=== PATIENT | female | born 1960 | race Hispanic/Latino ===

== ENCOUNTER 2017-03-01 15:10 | Emergency (ER) | payer OTHER ==
[2017-03-01 15:10] VITALS: BMI 25.2
[2017-03-01 15:30] VITALS: BP 114/81; PULSE 79; RESP 19; TEMP 98.1; O2SAT 100
--- NOTE | 2017-03-01 15:53 | ED PDOC ---
Arrival/HPI - General Chief Complaint: Back Pain Time Seen by Provider: 03/01/17 15:36 Historian: Patient - History of Present Illness Narrative History of Present Illness (Text): 03/01/17 15:50 56yo female present with complaint of right sided back pain since yesterday. states pain started suddenly while sitting at home. Pain became worse today, when she bent down to vegetable picker something from the floor. She describes pain as camping pain. Denies urinary symptoms, hematuria, nausea, vomiting, abdominal pain, urinary/fecal incontinence, focal weakness. Past Medical History - Provider Review Nursing Documentation Reviewed: Yes - Infectious Disease Hx of Infectious Diseases: None - Tetanus Immunization Tetanus Immunization: Unknown - Past Medical History Past Medical History: No Previous - Cardiac Hx Cardiac Disorders: No Hx Pacemaker: No - Pulmonary Hx Respiratory Disorders: No - Neurological Hx Neurological Disorder: No - HEENT Hx HEENT Disorder: No - Renal Hx Renal Disorder: No - Endocrine/Metabolic Hx Endocrine Disorders: No - Hematological/Oncological Hx Blood Disorders: No Hx Blood Transfusions: No Hx Blood Transfusion Reaction: No - Integumentary Hx Dermatological Disorder: No - Musculoskeletal/Rheumatological Hx Musculoskeletal Disorders: Yes Hx Arthritis: Yes Other/Comment: b/l hip replacement - Gastrointestinal Hx Gastrointestinal Disorders: No - Genitourinary/Gynecological Hx Genitourinary Disorders: No - Psychiatric Hx Psychophysiologic Disorder: Yes Hx Depression: Yes Hx Emotional Abuse: No Hx Physical Abuse: No Hx Substance Use: No - Surgical History Hx Joint Replacement: Yes (bilateral hip 2005, 2009) Hx Tubal Ligation: Yes - Anesthesia Hx Anesthesia: Yes Hx Anesthesia Reactions: No Hx Malignant Hyperthermia: No - Suicidal Assessment Feels Threatened In Home Enviroment: No Family/Social History - Physician Review Nursing Documentation Reviewed: Yes Family/Social History: Unknown Family HX Smoking Status: Former Smoker Hx Alcohol Use: Yes Frequency of alcohol use: Socially Hx Substance Use: No Hx Substance Use Treatment: No Allergies/Home Meds Allergies/Adverse Reactions: Allergies No Known Allergies Allergy (Verified 03/01/17 15:28) Home Medications: Home Meds Medication Instructions Recorded Confirmed Zolpidem Tartrate [Ambien] 10 mg PO PRN PRN 10/03/15 03/01/17 Review of Systems - Physician Review All systems were reviewed & negative as marked: Yes - Review of Systems Constitutional: Normal Eyes: Normal ENT: Normal Respiratory: Normal Cardiovascular: Normal Gastrointestinal: Normal Genitourinary Female: Normal Musculoskeletal: Back Pain Skin: Normal Neurological: Normal Endocrine: Normal Hemo/Lymphatic: Normal Psychiatric: Normal Physical Exam Vital Signs Reviewed: Yes Vital Signs Temp Pulse Resp BP Pulse Ox 03/01/17 15:29 98.1 F 79 19 114/81 100 Temperature: Afebrile Blood Pressure: Normal Pulse: Regular Respiratory Rate: Normal Appearance: Positive for: Well-Appearing, Non-Toxic, Comfortable Pain Distress: None Mental Status: Positive for: Alert and Oriented X 3 - Systems Exam Head: Present: Atraumatic, Normocephalic Pupils: Present: PERRL Extroacular Muscles: Present: EOMI Conjunctiva: Present: Normal Mouth: Present: Moist Mucous Membranes Neck: Present: Normal Range of Motion Respiratory/Chest: Present: Clear to Auscultation, Good Air Exchange. No: Respiratory Distress, Accessory Muscle Use Cardiovascular: Present: Regular Rate and Rhythm, Normal S1, S2. No: Murmurs Abdomen: Present: Normal Bowel Sounds. No: Tenderness, Distention, Peritoneal Signs Back: Present: Paraspinal Tenderness (Right sided paraspinous tenderness). No: Midline Tenderness Upper Extremity: Present: Normal Inspection. No: Cyanosis, Edema Lower Extremity: Present: Normal Inspection. No: Edema Neurological: Present: GCS=15, CN II-XII Intact, Speech Normal Skin: Present: Warm, Dry, Normal Color. No: Rashes Psychiatric: Present: Alert, Oriented x 3, Normal Insight, Normal Concentration Medical Decision Making ED Course and Treatment: 03/01/17 20:27 LS xray - No acute finding On re evaluation pt stated her pain improved. she was ambulatory with steady gait. She had no focal neurological deficit. Was treated with NSAID and muscle relaxer for MS pain. Referred to her PMD. TRT ED for any new or worsening symptoms. - Lab Interpretations Lab Results: Lab Results 03/01/17 15:54: Urine Color Yellow, Urine Appearance Clear, Urine pH 6.0, Ur Specific Ripton 1.025, Urine Protein Negative, Urine Glucose (UA) Negative, Urine Ketones Negative, Urine Blood Trace-intact H, Urine Nitrate Negative, Urine Bilirubin Negative, Urine Urobilinogen 0.2, Ur Leukocyte Esterase Negative , Urine RBC 2 - 5, Urine WBC 0 - 2, Ur Epithelial Cells 4 - 5, Urine Bacteria Small - RAD Interpretation Radiology Orders: 03/01/17 15:36 LS SPINE WITH OBL > 18 YRS OLD [RAD] Stat - Medication Orders Current Medication Orders: Discontinued Medications Cyclobenzaprine HCl (Flexeril) 10 mg PO STAT STA Stop: 03/01/17 15:55 Last Admin: 03/01/17 16:03 Dose: 10 mg Ketorolac Tromethamine (Toradol) 60 mg IM STAT STA Stop: 03/01/17 15:55 Last Admin: 03/01/17 16:04 Dose: 60 mg Disposition/Present on Arrival - Present on Arrival Any Indicators Present on Arrival: No History of DVT/PE: No History of Uncontrolled Diabetes: No Urinary Catheter: No History of Decub. Ulcer: No History Surgical Site Infection Following: None - Disposition Have Diagnosis and Disposition been Completed?: Yes Diagnosis: Back strain Disposition: HOME/ ROUTINE Disposition Time: 16:50 Patient Plan: Discharge Condition: STABLE Discharge Instructions (ExitCare): Back Pain (ED) Additional Instructions: Follow up with your Doctor Rest and apply warm compress to area Return to ED for any or worsening symptoms Prescriptions: Cyclobenzaprine [Cyclobenzaprine HCl] 10 mg PO TID #10 tab Naproxen [Naprosyn] 500 mg PO BID #20 tab Referrals: Josesito Lindsey MD [Primary Care Provider] - Follow up with primary Forms: WORK NOTE
[2017-03-01 16:09] LABS: URINE BILIRUBIN NEGATIVE (NEGATIVE); URINE BLOOD TRACE-INTACT (NEGATIVE); URINE GLUCOSE (UA) NEGATIVE (NEGATIVE); URINE KETONE NEGATIVE (NEGATIVE); URINE LEUKOCYTE ESTERASE NEGATIVE Leu/uL (NEGATIVE); URINE PROTEIN NEGATIVE mg/dL (<30 mg/dL); URINE UROBILINOGEN 0.2 E.U./dL (<1 E.U./dL)
[2017-03-01 16:11] LABS: URINE APPEARANCE CLEAR (CLEAR); URINE COLOR YELLOW (YELLOW)
[2017-03-01 17:01] LABS: URINE BACTERIA SMALL (NEG); URINE WBC 0 - 2 /hpf (0-6)
--- NOTE | 2017-03-02 08:54 | RAD ---
PROCEDURE: Radiographs of the Lumbar Spine. HISTORY: back pain COMPARISON: No prior. FINDINGS: BONES: Vertebral bodies maintained height. Transverse processes and posterior elements are intact. No spondylolysis or spondylolisthesis. DISC SPACES: Narrowing of the L4-5 intervertebral disc space is noted with anterior osteophytes consistent with degenerative disc disease. Remaining disc spaces are maintained in height. OTHER FINDINGS: None. IMPRESSION: Degenerative disc disease at L4-5.
== END 2017-03-01 17:00 | disposition home or self-care (01) ==
LOC: ED 15:10
DX: S39.012A Strain of muscle, fascia and tendon of lower back, initial encounter (principal); X58.XXXA Exposure to other specified factors, initial encounter; Z87.891 Personal history of nicotine dependence
CPT/HCPCS: 72110; 81001; 96372; 99282; J1885

== ENCOUNTER 2017-03-29 15:09 | Emergency (ER) | payer OTHER ==
[2017-03-29 15:10] VITALS: BMI 25.2
[2017-03-29 15:26] VITALS: BP 117/73; PULSE 81; RESP 18; TEMP 98.6; O2SAT 98
--- NOTE | 2017-03-29 15:58 | ED PDOC ---
Arrival/HPI - General Chief Complaint: Dizziness/Lightheaded Time Seen by Provider: 03/29/17 15:38 - History of Present Illness Narrative History of Present Illness (Text): 03/29/17 15:58 56 y/o F w/ PMHx of arthritis and seasonal allergies presents to the ED c/o head pressure and dizziness. Pt states she went to work this morning but suddently felt dizzy after going down the stairs, which prompted her to come in for evaluation. Pt reports pressure above and behind the eyes that started . Pain is minimally worse compared to onset 5days ago. Pain/pressure localized to frontal and maxillary sinus. Pt reports feeling like her head is in a cloud. Pt admits to some nasal congestion w/ recent PND. Pt states eyes hurt from the pressure but denies itchy, watery eyes. Pt denies changes in vision, tinnitus, F/C, CP, SOB, cough, N/V, abd pain. Pt admits to recent loose stool. (Jayna Gamboa) Past Medical History - Provider Review Nursing Documentation Reviewed: Yes - Infectious Disease Hx of Infectious Diseases: None - Tetanus Immunization Tetanus Immunization: Unknown - Past Medical History Past Medical History: No Previous - Cardiac Hx Cardiac Disorders: No Hx Pacemaker: No - Pulmonary Hx Respiratory Disorders: No - Neurological Hx Neurological Disorder: No - HEENT Hx HEENT Disorder: No - Renal Hx Renal Disorder: No - Endocrine/Metabolic Hx Endocrine Disorders: No - Hematological/Oncological Hx Blood Disorders: No Hx Blood Transfusions: No Hx Blood Transfusion Reaction: No - Integumentary Hx Dermatological Disorder: No - Musculoskeletal/Rheumatological Hx Musculoskeletal Disorders: Yes Hx Arthritis: Yes Other/Comment: b/l hip replacement - Gastrointestinal Hx Gastrointestinal Disorders: No - Genitourinary/Gynecological Hx Genitourinary Disorders: No - Psychiatric Hx Psychophysiologic Disorder: Yes Hx Depression: Yes Hx Emotional Abuse: No Hx Physical Abuse: No Hx Substance Use: No - Surgical History Hx Joint Replacement: Yes (bilateral hip 2005, 2009) Hx Tubal Ligation: Yes - Anesthesia Hx Anesthesia: Yes Hx Anesthesia Reactions: No Hx Malignant Hyperthermia: No - Suicidal Assessment Feels Threatened In Home Enviroment: No Family/Social History - Physician Review Nursing Documentation Reviewed: Yes Family/Social History: No Known Family HX Smoking Status: Former Smoker Hx Alcohol Use: No Hx Substance Use: No Hx Substance Use Treatment: No Allergies/Home Meds Allergies/Adverse Reactions: Allergies No Known Allergies Allergy (Verified 03/29/17 15:22) Home Medications: Home Meds Medication Instructions Recorded Confirmed Zolpidem Tartrate [Ambien] 10 mg PO PRN PRN 10/03/15 03/01/17 Review of Systems - Physician Review All systems were reviewed & negative as marked: Yes - Review of Systems Eyes: absent: Vision Changes ENT: absent: Hearing Changes Physical Exam Vital Signs Reviewed: Yes Temperature: Afebrile Blood Pressure: Normal Pulse: Regular Respiratory Rate: Normal Appearance: Positive for: Non-Toxic, Comfortable Pain Distress: None Mental Status: Positive for: Alert and Oriented X 3 - Systems Exam Head: Present: Atraumatic, Normocephalic, Tenderness (frontal and maxillary TTP) Pupils: Present: PERRL Extroacular Muscles: Present: EOMI Conjunctiva: Present: Normal Mouth: Present: Moist Mucous Membranes Neck: Present: Normal Range of Motion Respiratory/Chest: Present: Clear to Auscultation, Good Air Exchange. No: Respiratory Distress, Accessory Muscle Use Cardiovascular: Present: Regular Rate and Rhythm, Normal S1, S2. No: Murmurs Abdomen: No: Tenderness, Distention, Peritoneal Signs Upper Extremity: Present: Normal Inspection Lower Extremity: Present: Normal Inspection Neurological: Present: GCS=15, Speech Normal Skin: Present: Warm, Dry, Normal Color Psychiatric: Present: Alert, Oriented x 3, Normal Insight, Normal Concentration Medical Decision Making ED Course and Treatment: 03/29/17 16:11 56 y/o F w/ sinus pressure and dizziness - Flonase - Benadryl - Tylenol - Meclizine - reassess and dispo (Jayna Gamboa) Patient seen and examined with resident Came up with treatment and disposition plan with resident (Tripp Andrea) - Medication Orders Current Medication Orders: Discontinued Medications Acetaminophen (Tylenol 325mg Tab) 650 mg PO STAT STA Stop: 03/29/17 16:08 Last Admin: 03/29/17 16:26 Dose: 650 mg Diphenhydramine HCl (Benadryl) 25 mg PO STAT STA Stop: 03/29/17 16:08 Last Admin: 03/29/17 16:26 Dose: 25 mg Fluticasone Propionate (Flonase) 1 actuation NS STAT STA Stop: 03/29/17 16:07 Last Admin: 03/29/17 16:42 Dose: 1 spray Meclizine HCl (Antivert) 12.5 mg PO STAT STA Stop: 03/29/17 16:13 Last Admin: 03/29/17 16:26 Dose: 12.5 mg Disposition/Present on Arrival - Present on Arrival Any Indicators Present on Arrival: No History of DVT/PE: No History of Uncontrolled Diabetes: No Urinary Catheter: No History of Decub. Ulcer: No History Surgical Site Infection Following: None - Disposition Have Diagnosis and Disposition been Completed?: Yes Disposition Time: 16:17 - Disposition Diagnosis: Dizziness Disposition: HOME/ ROUTINE Condition: GOOD Discharge Instructions (ExitCare): Sinusitis (ED), Dizziness (ED) Additional Instructions: follow up with primary medical doctor within 1week take Flonase 1 spray each nostril daily may take OTC decongestant &/or antihistamine if needed return to the ED of Fever >100.4, worsening dizziness, pain, changes in vision. Prescriptions: Fluticasone Nasal [Flonase] 1 spr NS DAILY #1 unit Referrals: PCP,NO [Primary Care Provider] - Follow up with primary
[2017-03-29] MEDS ORDERED: Fluticasone Nasal 50 mcg/Spray NS STA (16:06)
[2017-03-29] MEDS ORDERED: DiphenhydrAMINE 12.5 mg/5 ml LIQ UD (5 ml) PO STA (16:07)
== END 2017-03-29 16:42 | disposition home or self-care (01) ==
LOC: ED 15:09
DX: R42 Dizziness and giddiness (principal); Z87.891 Personal history of nicotine dependence

== ENCOUNTER 2017-05-13 10:50 | Emergency (ER) | payer OTHER ==
[2017-05-13 10:51] VITALS: BMI 25.2
[2017-05-13 11:14] VITALS: TEMP 98.3
--- NOTE | 2017-05-13 11:19 | ED PDOC ---
Arrival/HPI - General Chief Complaint: Back Pain Time Seen by Provider: 05/13/17 11:09 Historian: Patient - History of Present Illness Narrative History of Present Illness (Text): 05/13/17 11:15 Kiley Pickering is a 56 year old female who presents to the emergency department complaining of left mid-back pain/left posterior rib pain. Patient states that she "pulled her muscle" when she was pulling up a tightly closed door at work. Reports that pain is worse with deep inspiration and ayala motion. She does not have a history of chronic back pain and has not experienced pain of this quality before. Denies any numbness, weakness, tingling to extremities. Denies fever, chills, shortness of breath, chest pain, or any other complaints at this time. Time/Duration: Prior to Arrival Symptom Onset: Sudden Symptom Course: Unchanged Severity Level: Mild Activities at Onset: Light Context: Work Past Medical History - Provider Review Nursing Documentation Reviewed: Yes - Infectious Disease Hx of Infectious Diseases: None - Tetanus Immunization Tetanus Immunization: Unknown - Past Medical History Past Medical History: No Previous - Cardiac Hx Cardiac Disorders: No - Pulmonary Hx Respiratory Disorders: No - Neurological Hx Neurological Disorder: No - HEENT Hx HEENT Disorder: No - Renal Hx Renal Disorder: No - Endocrine/Metabolic Hx Endocrine Disorders: No - Hematological/Oncological Hx Blood Disorders: No Hx Blood Transfusions: No Hx Blood Transfusion Reaction: No - Integumentary Hx Dermatological Disorder: No - Musculoskeletal/Rheumatological Hx Musculoskeletal Disorders: Yes Hx Arthritis: Yes Other/Comment: b/l hip replacement - Gastrointestinal Hx Gastrointestinal Disorders: No - Genitourinary/Gynecological Hx Genitourinary Disorders: No - Psychiatric Hx Psychophysiologic Disorder: Yes Hx Depression: Yes Hx Emotional Abuse: No Hx Physical Abuse: No Hx Substance Use: No - Surgical History Hx Joint Replacement: Yes (bilateral hip 2005, 2009) Hx Tubal Ligation: Yes - Anesthesia Hx Anesthesia: Yes Hx Anesthesia Reactions: No Hx Malignant Hyperthermia: No - Suicidal Assessment Feels Threatened In Home Enviroment: No Family/Social History - Physician Review Nursing Documentation Reviewed: Yes Family/Social History: No Known Family HX Smoking Status: Former Smoker Hx Alcohol Use: Yes Hx Substance Use: No Hx Substance Use Treatment: No Allergies/Home Meds Allergies/Adverse Reactions: Allergies No Known Allergies Allergy (Verified 03/29/17 15:22) Review of Systems - Review of Systems Constitutional: absent: Fatigue, Fevers Respiratory: absent: SOB, Cough Cardiovascular: absent: Chest Pain, Palpitations, Edema, ZAMORA Gastrointestinal: absent: Abdominal Pain, Diarrhea, Nausea, Vomiting Musculoskeletal: Back Pain (left thoracic back pain ), Other (left posterior rib pain ) Skin: absent: Rash Neurological: absent: Headache, Dizziness Hemo/Lymphatic: absent: Easy Bleeding Physical Exam - Physical Exam Narrative Physical Exam (Text): Head: Atraumatic. Normocephalic. Eyes: PERRL. EOMI. Conjunctivae are not pale. Neck: Supple. Full ROM. No meningeal signs. Cardiovascular: Regular rate. Regular rhythm. Pulmonary/Chest: No evidence of respiratory distress. Abdominal: Nondistended. Back: No CVA tenderness. Mild left mid back pain on palpation and ayala motion. No crepitus. No midline back pain. No edema. Extremities: Full range of motion of upper extremities with no pain. Neurological: Steady gait. Motor and sensory intact. Psychiatric: Good eye contact. Normal interaction, affect, and behavior. Vital Signs Reviewed: Yes Vital Signs Temp Pulse Resp BP Pulse Ox 05/13/17 11:41 79 18 112/75 98 05/13/17 10:53 98.3 F 84 18 110/72 96 Temperature: Afebrile Blood Pressure: Normal Pulse: Regular Respiratory Rate: Normal Appearance: Positive for: Well-Appearing, Non-Toxic, Comfortable Pain Distress: Mild Mental Status: Positive for: Alert and Oriented X 3 Medical Decision Making ED Course and Treatment: 05/13/17 11:23 Impression: A 56 year old female who presents to the emergency department complaining of left back pain after she was pushing and moving something prior to arrival. She denies history of back pain in past. Denied symptoms prior to moving. Differential Diagnosis included but are not limited to: muscle strain. Will obtain Chest X-ray because patient reports that pain is worse with deep inspiration Plan: -- Chest X-ray -- Motrin -- Reassess and disposition Progress Notes: Pain is palpable worse with movements. No hypoxia. No respiratory distress. Lungs clear and breath sounds heard bilaterally. CXR unremarkable for pneumothorax. Will discharge with Ibuprofen, advised follow-up with Employee Health. - RAD Interpretation Radiology Orders: 05/13/17 11:14 CHEST TWO VIEWS (PA/LAT) [RAD] Stat - Medication Orders Current Medication Orders: Discontinued Medications Ibuprofen (Motrin Tab) 400 mg PO ONCE STA Stop: 05/13/17 11:15 Last Admin: 05/13/17 11:26 Dose: 400 mg - Scribe Statement The provider has reviewed the documentation as recorded by the Rosangela Quinones Provider Attestation: Provider Scribe Attestation: All medical record entries made by the Andrewibgadiel were at my direction and personally dictated by me. I have reviewed the chart and agree that the record accurately reflects my personal performance of the history, physical exam, medical decision making, and the department course for this patient. I have also personally directed, reviewed, and agree with the discharge instructions and disposition. Disposition/Present on Arrival - Present on Arrival Any Indicators Present on Arrival: No History of DVT/PE: No History of Uncontrolled Diabetes: No Urinary Catheter: No History of Decub. Ulcer: No History Surgical Site Infection Following: None - Disposition Have Diagnosis and Disposition been Completed?: Yes Diagnosis: Muscle strain Disposition: HOME/ ROUTINE Disposition Time: 11:49 Patient Plan: Discharge Patient Problems: Current Active Problems Problem Status Onset Muscle strain Acute Condition: GOOD Discharge Instructions (ExitCare): Muscle Strain (ED) Additional Instructions: For any chest pain, any shortness of breath, any abdominal pain, any rash, any abdominal pain, any numbness or weakness, any persistent or worsening of pain, get rechecked. No heavy lifting or strenuous activity until cleared by Employee Health. Take Ibuprofen as needed for pain. Prescriptions: Ibuprofen [Motrin Tab] 400 mg PO Q8 PRN #12 tab PRN Reason: pain Forms: [employer] ([place]rian)
[2017-05-13 11:42] VITALS: O2SAT 98
[2017-05-13 12:10] VITALS: BP 115/78; PULSE 76; RESP 17
--- NOTE | 2017-05-13 12:15 | RAD ---
HISTORY: left mid back pain, worse with breaths COMPARISON: 10/31/2016 TECHNIQUE: Chest PA and lateral FINDINGS: LUNGS: No active pulmonary disease. PLEURA: No significant pleural effusion identified. No pneumothorax apparent. CARDIOVASCULAR: Normal. OSSEOUS STRUCTURES: No significant abnormalities. VISUALIZED UPPER ABDOMEN: Normal. OTHER FINDINGS: None. IMPRESSION: No active disease.
== END 2017-05-13 12:10 | disposition home or self-care (01) ==
LOC: ED 10:50
DX: S29.012A Strain of muscle and tendon of back wall of thorax, initial encounter (principal); X50.0XXA Overexertion from strenuous movement or load, initial encounter; Y93.89 Activity, other specified; Y92.89 Other specified places as the place of occurrence of the external cause; Y99.8 Other external cause status

== ENCOUNTER 2017-07-31 16:32 | Emergency (ER) | payer OTHER ==
[2017-07-31 16:37] VITALS: BMI 24.1
--- NOTE | 2017-07-31 16:48 | ED PDOC ---
Arrival/HPI - General Chief Complaint: Female Genitourinary Time Seen by Provider: 07/31/17 16:34 Historian: Patient - History of Present Illness Narrative History of Present Illness (Text): 07/31/17 16:46 A 56 year old female with no significant past medical history, presents to the emergency department with 2 day duration pain with urination. The patient states that she noticed a small amount of blood in the urine and is feeling suprapubic pressure. The patient denies fevers, chills, headache, dizziness, sore throat, cough, chest pain, shortness of breath, dyspnea on exertion, nausea , vomiting, diarrhea, neck pain, back pain, urinary/bowel changes, or any other complaints. PMD: Dr. Gage Lindsey Time/Duration: Other (2 days ) Symptom Onset: Sudden Symptom Course: Unchanged Activities at Onset: Rest, Light Context: Home Past Medical History - Provider Review Nursing Documentation Reviewed: Yes - Infectious Disease Hx of Infectious Diseases: None - Tetanus Immunization Tetanus Immunization: Unknown - Past Medical History Past Medical History: No Previous - Cardiac Hx Cardiac Disorders: No - Pulmonary Hx Respiratory Disorders: No - Neurological Hx Neurological Disorder: No - HEENT Hx HEENT Disorder: No - Renal Hx Renal Disorder: No - Endocrine/Metabolic Hx Endocrine Disorders: No - Hematological/Oncological Hx Blood Disorders: No Hx Blood Transfusions: No Hx Blood Transfusion Reaction: No - Integumentary Hx Dermatological Disorder: No - Musculoskeletal/Rheumatological Hx Musculoskeletal Disorders: Yes Hx Arthritis: Yes Other/Comment: b/l hip replacement - Gastrointestinal Hx Gastrointestinal Disorders: No - Genitourinary/Gynecological Hx Genitourinary Disorders: No - Psychiatric Hx Psychophysiologic Disorder: Yes Hx Depression: Yes Hx Emotional Abuse: No Hx Physical Abuse: No Hx Substance Use: No - Surgical History Hx Joint Replacement: Yes (bilateral hip 2005, 2009) Hx Tubal Ligation: Yes - Anesthesia Hx Anesthesia: Yes Hx Anesthesia Reactions: No Hx Malignant Hyperthermia: No - Suicidal Assessment Feels Threatened In Home Enviroment: No Family/Social History - Physician Review Nursing Documentation Reviewed: Yes Family/Social History: No Known Family HX Smoking Status: Light Smoker < 10 Cigarettes Daily Hx Alcohol Use: Yes Frequency of alcohol use: Socially Hx Substance Use: No Hx Substance Use Treatment: No Allergies/Home Meds Allergies/Adverse Reactions: Allergies No Known Allergies Allergy (Verified 03/29/17 15:22) Review of Systems - Physician Review All systems were reviewed & negative as marked: Yes - Review of Systems Constitutional: absent: Fevers, Night Sweats ENT: absent: Sore Throat Respiratory: absent: SOB, Cough Cardiovascular: absent: Chest Pain, ZAMORA Gastrointestinal: Abdominal Pain. absent: Stool Changes, Diarrhea, Nausea, Vomiting Genitourinary Female: Dysuria, Hematuria Musculoskeletal: absent: Back Pain, Neck Pain Neurological: absent: Headache, Dizziness Physical Exam Vital Signs Reviewed: Yes Vital Signs Temp Pulse Resp BP Pulse Ox 07/31/17 16:40 98.9 F 79 12 142/67 98 Temperature: Afebrile Blood Pressure: Normal Pulse: Regular Respiratory Rate: Normal Appearance: Positive for: Well-Appearing, Non-Toxic, Comfortable Pain Distress: None Mental Status: Positive for: Alert and Oriented X 3 - Systems Exam Head: Present: Atraumatic, Normocephalic Pupils: Present: PERRL Conjunctiva: Present: Normal Mouth: Present: Moist Mucous Membranes Pharnyx: Present: Normal. No: ERYTHEMA, EXUDATE Neck: Present: Normal Range of Motion Respiratory/Chest: Present: Clear to Auscultation, Good Air Exchange. No: Respiratory Distress, Accessory Muscle Use Cardiovascular: Present: Regular Rate and Rhythm, Normal S1, S2. No: Murmurs Abdomen: Present: Normal Bowel Sounds. No: Tenderness, Distention, Peritoneal Signs Back: Present: Normal Inspection. No: CVA Tenderness Upper Extremity: Present: Normal Inspection. No: Cyanosis, Edema Lower Extremity: Present: Normal Inspection. No: Edema Neurological: Present: GCS=15, CN II-XII Intact, Speech Normal Skin: Present: Warm, Dry, Normal Color. No: Rashes Psychiatric: Present: Alert, Oriented x 3, Normal Insight, Normal Concentration Medical Decision Making ED Course and Treatment: 07/31/17 16:49 Impression: A 56 year old female presents to the emergency department with dysuria, hematuria, and abdominal pain. Plan: -- Urine Culture -- Urinalysis -- Reassess and disposition Prior Visits: Notes and results from previous visits were reviewed. On 05/13/2017, the patient was seen in the emergency department for left mid- back pain/ left posterior rib pain. The patient was d/c home with a prescription of Motrin. Progress Notes: 07/31/17 17:25 Patient with noted history with unremarkable vitals and urine showing UTI - likely cystitis - will d/c on oral abx. 07/31/17 17:29: On reevaluation and disposition, the patient notes that a couple of weeks ago she was experiencing chest pain. 07/31/17 18:02: EKG: NSR @ 71; normal intervals; normal axis EKG was ordered which was unremarkable, but the patient refused any blood work. I spoke with the patient regarding the risks of the pain having been potentially cardiac and that she needs a further workup. She still refused and said she will follow up with her pmd, despite understanding the risks of a heart attack and . She was fully awake, alert, and oriented x 3 with full understanding of the risks, benefits, and the decision made to refuse further workup. - Lab Interpretations Lab Results: Lab Results 07/31/17 16:50: Urine Color Light yellow, Urine Appearance Cloudy, Urine pH 7.0 , Ur Specific [place] 1.010, Urine Protein 30 H, Urine Glucose (UA) Negative, Urine Ketones Negative, Urine Blood Large H, Urine Nitrate Negative, Urine Bilirubin Negative, Urine Urobilinogen 0.2, Ur Leukocyte Esterase Moderate H, Urine RBC 10 - 15, Urine WBC 20 - 25, Ur Epithelial Cells 0 - 2, Urine Bacteria Few - RAD Interpretation Radiology Orders: 07/31/17 17:28 CHEST TWO VIEWS (PA/LAT) [RAD] Stat - Medication Orders Current Medication Orders: Discontinued Medications Nitrofurantoin Macrocrystals (Macrobid) 100 mg PO ONCE STA Stop: 07/31/17 16:57 Last Admin: 07/31/17 17:04 Dose: 100 mg Phenazopyridine HCl (Pyridium) 200 mg PO STAT STA Stop: 07/31/17 16:57 Last Admin: 07/31/17 17:04 Dose: 200 mg - Scribe Statement The provider has reviewed the documentation as recorded by the Rosangela Ya Provider Rosangela Attestation: All medical record entries made by the Andrewibgadiel were at my direction and personally dictated by me. I have reviewed the chart and agree that the record accurately reflects my personal performance of the history, physical exam, medical decision making, and the department course for this patient. I have also personally directed, reviewed, and agree with the discharge instructions and disposition. Disposition/Present on Arrival - Present on Arrival Any Indicators Present on Arrival: No History of DVT/PE: No History of Uncontrolled Diabetes: No Urinary Catheter: No History of Decub. Ulcer: No History Surgical Site Infection Following: None - Disposition Have Diagnosis and Disposition been Completed?: Yes Diagnosis: Urinary tract infection Disposition: HOME/ ROUTINE Disposition Time: 17:20 Patient Plan: Discharge Patient Problems: Current Active Problems Problem Status Onset Urinary tract infection Acute Condition: GOOD Discharge Instructions (ExitCare): Urinary Tract Infection in Women (ED) Additional Instructions: Take the antibiotics as prescribed. Drink plenty of fluids. Follow up with your primary care doctor. Return to the emergency department if any new concerning symptoms. Prescriptions: Nitrofurantoin Macrocrystals [Macrobid] 100 mg PO BID #14 cap Phenazopyridine HCl [Pyridium] 1 tab PO TID PRN #6 tablet PRN Reason: Urinary Discomt Referrals: Josesito Lindsey MD [Primary Care Provider] - Follow up with primary Forms: [employer] (Dutch)
[2017-07-31 16:52] VITALS: BP 142/67; PULSE 79; RESP 12; TEMP 98.9; O2SAT 98
[2017-07-31 17:00] LABS: URINE BILIRUBIN NEGATIVE (NEGATIVE); URINE BLOOD LARGE (NEGATIVE); URINE GLUCOSE (UA) NEGATIVE (NEGATIVE); URINE KETONE NEGATIVE (NEGATIVE); URINE LEUKOCYTE ESTERASE MODERATE Leu/uL (NEGATIVE); URINE PROTEIN 30 mg/dL (<30 mg/dL); URINE UROBILINOGEN 0.2 E.U./dL (<1 E.U./dL)
[2017-07-31 17:12] LABS: URINE APPEARANCE CLOUDY (CLEAR); URINE COLOR LIGHT YELLOW (YELLOW)
[2017-07-31 17:25] LABS: URINE WBC 20 - 25 /hpf (0-6)
[2017-07-31 17:27] LABS: URINE BACTERIA FEW (NEG); URINE EPITHELIAL CELLS 0 - 2 /hpf (0-5)
--- NOTE | 2017-08-02 12:29 | CARD ---
APPROVED REPORT EKG Measurement Heart [id number] <Conclusion> Normal sinus rhythm Normal ECG
== END 2017-07-31 18:03 | disposition home or self-care (01) ==
LOC: ED 16:32
DX: N39.0 Urinary tract infection, site not specified (principal); F17.210 Nicotine dependence, cigarettes, uncomplicated; Z98.51 Tubal ligation status

== ENCOUNTER 2018-06-02 15:08 | Emergency (ER) | payer BC, OTHER ==
[2018-06-02 15:38] VITALS: BMI 25.7
--- NOTE | 2018-06-02 15:41 | ED PDOC ---
Arrival/HPI - General Time Seen by Provider: 06/02/18 15:18 Historian: Patient - History of Present Illness Narrative History of Present Illness (Text): 06/02/18 15:38 57 y/o female, nkda, post menopausal, c/o lt. lower back pain started after heavy lifting at work about 1 week ago. Pt. stated that that she was at work, heavy lifting by herself, feel she pull the muscle, been having pain, non- radiating, no urinary or bowel incontinence or retention, no night sweat, tried tylenol at home with improvement but not completely resolved, still having pain so she is here for evaluation. Pt. has no fever or chills, no numbness or tingling, no other medical or psychological complaints. Past Medical History - Provider Review Nursing Documentation Reviewed: Yes - Infectious Disease Hx of Infectious Diseases: None - Tetanus Immunization Tetanus Immunization: Unknown - Past Medical History Past Medical History: No Previous - Cardiac Hx Cardiac Disorders: No - Pulmonary Hx Respiratory Disorders: No - Neurological Hx Neurological Disorder: No - HEENT Hx HEENT Disorder: No - Renal Hx Renal Disorder: No - Endocrine/Metabolic Hx Endocrine Disorders: No - Hematological/Oncological Hx Blood Disorders: No Hx Blood Transfusions: No Hx Blood Transfusion Reaction: No - Integumentary Hx Dermatological Disorder: No - Musculoskeletal/Rheumatological Hx Musculoskeletal Disorders: Yes Hx Arthritis: Yes Other/Comment: b/l hip replacement - Gastrointestinal Hx Gastrointestinal Disorders: No - Genitourinary/Gynecological Hx Genitourinary Disorders: No - Psychiatric Hx Psychophysiologic Disorder: Yes Hx Depression: Yes Hx Emotional Abuse: No Hx Physical Abuse: No Hx Substance Use: No - Surgical History Hx Joint Replacement: Yes (bilateral hip 2005, 2009) Hx Tubal Ligation: Yes - Anesthesia Hx Anesthesia: Yes Hx Anesthesia Reactions: No Hx Malignant Hyperthermia: No - Suicidal Assessment Feels Threatened In Home Enviroment: No Family/Social History - Physician Review Nursing Documentation Reviewed: Yes Family/Social History: Unknown Family HX Smoking Status: Light Smoker < 10 Cigarettes Daily Hx Alcohol Use: Yes Hx Substance Use: No Hx Substance Use Treatment: No Allergies/Home Meds Allergies/Adverse Reactions: Allergies No Known Allergies Allergy (Verified 06/02/18 15:38) Review of Systems - Review of Systems Constitutional: absent: Fatigue, Fevers Eyes: absent: Vision Changes ENT: absent: Hearing Changes Respiratory: absent: SOB, Cough Cardiovascular: absent: Chest Pain Gastrointestinal: absent: Abdominal Pain, Nausea, Vomiting Musculoskeletal: Back Pain. absent: Arthralgias, Neck Pain, Myalgias Skin: absent: Rash, Pruritis Psychiatric: absent: Anxiety, Depression, Suicidal Ideation Physical Exam Vital Signs Temp Pulse Resp BP Pulse Ox 06/02/18 17:29 98.2 F 81 18 120/81 100 06/02/18 15:55 98.2 F 82 18 125/85 99 06/02/18 15:09 98.2 F 82 18 125/85 99 - Systems Exam Head: Present: Atraumatic, Normocephalic Pupils: Present: PERRL Extroacular Muscles: Present: EOMI Conjunctiva: Present: Normal Mouth: Present: Moist Mucous Membranes Neck: Present: Normal Range of Motion Respiratory/Chest: Present: Clear to Auscultation, Good Air Exchange. No: Respiratory Distress, Accessory Muscle Use Cardiovascular: Present: Regular Rate and Rhythm, Normal S1, S2. No: Murmurs Abdomen: No: Tenderness, Distention, Peritoneal Signs Back: Present: Normal Inspection, Other (LS spine: +ttp on the lt. paraspinal tenderness, no midline tenderness or step off, FROM without limitation, sensation intact, motor 5/5, SLR test negative, no focal neurological deficits. ). No: CVA Tenderness, Midline Tenderness, Pain with Leg Raise, Decubitus Ulcer Upper Extremity: Present: Normal Inspection. No: Cyanosis, Edema Lower Extremity: Present: Normal Inspection. No: Edema Neurological: Present: GCS=15, CN II-XII Intact, Speech Normal Skin: Present: Warm, Dry, Normal Color. No: Rashes Psychiatric: Present: Alert, Oriented x 3, Normal Insight, Normal Concentration Medical Decision Making ED Course and Treatment: 06/02/18 15:42 -toradol IM -LS spine xray -observe and reassess 06/02/18 16:43 -Xray show no fracture or subluxation but there is multiple degenerative joint changes. -Back pain improved, walking with normal gait and posture, no focal neurological deficits. -All radiology result discussed with the patient, advised to follow up with the employee health as follow up in 24-48 hours as well. -Discharge home with naproxen, flexeril, lidoderm, heat compression, follow up with your own pmd within 2 days, return to the ER for any new or worsening signs or symptoms. - RAD Interpretation Radiology Orders: 06/02/18 15:39 LS SPINE WITH OBL > 18 YRS OLD [RAD] Stat HISTORY: lower back pain x 1 week COMPARISON: No prior. FINDINGS: BONES: There is normal alignment of the lumbar vertebral bodies. There is diffuse bone demineralization. There is no acute fracture, spondylolysis or spondylolisthesis. DISC SPACES: There is multilevel degenerative disc disease with anterior osteophytes, reduced disc heights and multilevel facet arthropathy, worse at L4-5 and L5-S1. OTHER FINDINGS: No pathologic soft tissue calcifications. Mild degenerative osteoarthrosis in both sacroiliac joints, worse on the right. IMPRESSION: No acute fracture, spondylolysis or spondylolisthesis. 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 No Sleep Is patient sleeping during reassessment? No Presence of Pain Presence of Pain Yes Location Upper or Lower Lower Pain Location Body Site Back Description Description Constant Intensity of Pain at present 10 IM Administration Charges Document 06/02/18 16:36 LA (Rec: 06/02/18 16:37 LA [id number]) Injection Site MAR Injection Site Right Gluteus Doc Charges for Administration # of IM Administrations 1 - PA / STICK INSERTER / Resident Statement MD/DO has reviewed & agrees with the documentation as recorded. Disposition/Present on Arrival - Present on Arrival Any Indicators Present on Arrival: No History of DVT/PE: No History of Uncontrolled Diabetes: No Urinary Catheter: No History of Decub. Ulcer: No History Surgical Site Infection Following: None - Disposition Have Diagnosis and Disposition been Completed?: Yes Diagnosis: Low back pain Disposition: HOME/ ROUTINE Disposition Time: 16:44 Patient Plan: Discharge Condition: IMPROVED Additional Instructions: -Discharge home with naproxen, flexeril, lidoderm, heat compression, follow up with your own pmd within 2 days, return to the ER for any new or worsening signs or symptoms. Prescriptions: Cyclobenzaprine [Cyclobenzaprine HCl] 10 mg PO TID PRN #21 tab PRN Reason: Other Lidocaine 5% [Lidoderm] 1 patch TP DAILY #14 patch Naproxen 500 mg PO BID PRN #20 tablet PRN Reason: Other Referrals: [facility] [place], [place] [Outside] - Follow up with primary Forms: WORK NOTE
[2018-06-02 15:47] VITALS: RESP 18; TEMP 98.2
[2018-06-02 17:30] VITALS: BP 120/81; PULSE 81; O2SAT 100
--- NOTE | 2018-06-03 14:50 | RAD ---
Date of service: 06/02/2018 PROCEDURE: Radiographs of the Lumbar Spine. HISTORY: lower back pain x 1 week COMPARISON: No prior. FINDINGS: BONES: There is normal alignment of the lumbar vertebral bodies. There is diffuse bone demineralization. There is no acute fracture, spondylolysis or spondylolisthesis. DISC SPACES: There is multilevel degenerative disc disease with anterior osteophytes, reduced disc heights and multilevel facet arthropathy, worse at L4-5 and L5-S1. OTHER FINDINGS: No pathologic soft tissue calcifications. Mild degenerative osteoarthrosis in both sacroiliac joints, worse on the right. IMPRESSION: No acute fracture, spondylolysis or spondylolisthesis. Multilevel degenerative disc disease, worse at L4-5 and L5-S1.
== END 2018-06-02 17:29 | disposition home or self-care (01) ==
LOC: ED 15:08
DX: M54.5 Low back pain (principal); F17.210 Nicotine dependence, cigarettes, uncomplicated
CPT/HCPCS: 72110; 96372; 99282; J1885

== ENCOUNTER 2018-11-13 06:27 | Emergency (ER) | payer OTHER ==
[2018-11-13 06:28] VITALS: BMI 25.7
[2018-11-13 06:50] VITALS: TEMP 97.6
--- NOTE | 2018-11-13 07:22 | ED PDOC ---
Arrival/HPI <Bola Daniels - Last Filed: 11/13/18 07:46> - General Historian: Patient - History of Present Illness Narrative History of Present Illness (Text): Patient is a 57 yr old female with no PMH who presents with pain in the left foot after accidentally stepping on something while walking to the bathroom last night. Patient states she felt something sharp while walking but was unable to feel anything sticking out of her foot. She states that she has continued to have pain when walking or weight bearing on the foot this morning. She otherwise denies MALCOLM, Dizziness, chest pain, SOB, abdominal pain, f/c, n/v, dysuria, stool changes and extremity numbness or weakness. She indicates that she can feel and move her foot normally. 11/13/18 07:19 Time/Duration: Prior to Arrival, 4-6 hours Symptom Onset: Sudden Symptom Course: Unchanged Quality: Stabbing Severity Level: 4 Activities at Onset: Other (walking) Context: Walking <Christine Ware - Last Filed: 11/13/18 12:58> - General Chief Complaint: Abnormal Skin Integrity Time Seen by Provider: 11/13/18 07:17 Past Medical History - Provider Review Nursing Documentation Reviewed: Yes - Travel History Have you recently traveled outside [place] w/in the past 3 mons?: No - Infectious Disease Hx of Infectious Diseases: None - Tetanus Immunization Tetanus Immunization: Unknown - Past Medical History Past Medical History: No Previous - Cardiac Hx Cardiac Disorders: No - Pulmonary Hx Respiratory Disorders: No - Neurological Hx Neurological Disorder: No - HEENT Hx HEENT Disorder: No - Renal Hx Renal Disorder: No - Endocrine/Metabolic Hx Endocrine Disorders: No - Hematological/Oncological Hx Blood Disorders: No Hx Blood Transfusions: No Hx Blood Transfusion Reaction: No - Integumentary Hx Dermatological Disorder: No - Musculoskeletal/Rheumatological Hx Musculoskeletal Disorders: Yes Hx Arthritis: Yes Other/Comment: b/l hip replacement - Gastrointestinal Hx Gastrointestinal Disorders: No - Genitourinary/Gynecological Hx Genitourinary Disorders: No - Psychiatric Hx Psychophysiologic Disorder: Yes Hx Depression: Yes Hx Emotional Abuse: No Hx Physical Abuse: No Hx Substance Use: No - Surgical History Hx Joint Replacement: Yes (bilateral hip 2005, 2009) Hx Tubal Ligation: Yes - Anesthesia Hx Anesthesia: Yes Hx Anesthesia Reactions: No Hx Malignant Hyperthermia: No - Suicidal Assessment Feels Threatened In Home Enviroment: No <Christine Ware Filed: 11/13/18 12:58> Family/Social History - Physician Review Nursing Documentation Reviewed: Yes Family/Social History: Unknown Family HX Smoking Status: Light Smoker < 10 Cigarettes Daily Hx Alcohol Use: Yes Hx Substance Use: No Hx Substance Use Treatment: No <Christine Ware Filed: 11/13/18 12:58> Allergies/Home Meds <Bola Daniels Filed: 11/13/18 07:46> <Christine Ware Last Filed: 11/13/18 12:58> Allergies/Adverse Reactions: Allergies No Known Allergies Allergy (Verified 11/13/18 06:44) Home Medications: Home Meds Medication Instructions Recorded Confirmed No Known Home Med 11/13/18 11/13/18 Review of Systems - Physician Review All systems were reviewed & negative as marked: Yes - Review of Systems Respiratory: absent: SOB Cardiovascular: absent: Chest Pain Gastrointestinal: absent: Abdominal Pain, Nausea, Vomiting Musculoskeletal: absent: Arthralgias, Joint Swelling Skin: absent: Rash, Skin Lesions, Laceration, Cellulitis Neurological: Gait Changes (d/t pain when walking). absent: Headache, Dizziness <Christine Ware Filed: 11/13/18 12:58> Physical Exam Vital Signs Temp Pulse Resp BP Pulse Ox 11/13/18 06:44 97.6 F 101 H 15 125/67 98 <Bola Daniels Last Filed: 11/13/18 07:46> Vital Signs Reviewed: Yes Vital Signs Temp Pulse Resp BP Pulse Ox 11/13/18 06:44 97.6 F 101 H 15 125/67 98 Temperature: Afebrile Blood Pressure: Normal Pulse: Tachycardic Respiratory Rate: Normal Appearance: Positive for: Well-Appearing, Non-Toxic, Comfortable Pain Distress: None Mental Status: Positive for: Alert and Oriented X 3 - Systems Exam Head: Present: Atraumatic, Normocephalic Extroacular Muscles: Present: EOMI Mouth: Present: Moist Mucous Membranes Neck: Present: Normal Range of Motion Respiratory/Chest: Present: Clear to Auscultation, Good Air Exchange. No: Accessory Muscle Use Cardiovascular: Present: Regular Rate and Rhythm, Normal S1, S2. No: Murmurs Abdomen: No: Tenderness, Distention Upper Extremity: Present: Normal Inspection. No: Cyanosis, Edema Lower Extremity: Present: Normal Inspection, NORMAL PULSES, Normal ROM, Tenderness (plantar surface of the midline ball of foot), Neurovascularly Intact, Capillary Refill < 2 s. No: Edema, CALF TENDERNESS, Swelling, Erythema, Deformity Neurological: Present: GCS=15, CN II-XII Intact, Speech Normal, Motor Func Gr ossly Intact, Normal Sensory Function Skin: Present: Warm, Dry, Normal Color, Other (small area of minimal skin break 0.5 cm on the plantar midline ball of foot). No: Rashes <Christine Ware - Last Filed: 11/13/18 12:58> Medical Decision Making ED Course and Treatment: 11/13/18 07:47 Impression: 57 yr old female with no PMH who presents with pain in the left foot after accidentally stepping on something while walking to the bathroom last night In agreement with resident note which contains more details about the patient. Patient seen and evaluated with resident. Came up with plan and treatment together. Plan: -- Left foot x-ray - RAD Interpretation Radiology Orders: 11/13/18 07:18 FOOT LEFT 3 VIEWS ROUTINE [RAD] Stat <Bola Daniels - Last Filed: 11/13/18 07:46> ED Course and Treatment: impression: 57 yr old female with left foot pain after stepping on unknown object, possible foreign body Plan: Left foot XR tylenol reassess and dispo 11/13/18 07:27 no foreign body seen on Xray by my read, US of foot ordered to confirm 11/13/18 08:20 Spoke with Pod[address]ry resident Dr. Cassidy, agreed to come to see patient and evaluate imaging 11/13/18 09:30 Called Podiatry resident again to confirm that she is coming to see patient, resident is coming from [facility] to see patient 11/13/18 10:00 Attempted to call podiatry resident again as patient has not been seen, no answer 11/13/18 11:00 Podiatry resident came to see patient debrided area, did not see foreign body, indicates that patient can follow up in podiatry clinic with Dr. Heranndez after discharge 11/13/18 11:31 <Christine Ware - Last Filed: 11/13/18 12:58> - PA / [employer]SE[employer] K[employer]ITTER / Resident Statement / has reviewed & agrees with the documentation as recorded. MD/DO has examined the patient and agrees with the treatment plan. - Scribe Statement The provider has reviewed the documentation as recorded by the Scribe Jarrell Lewis All medical record entries made by the Scribe were at my direction and personally dictated by me. I have reviewed the chart and agree that the record accurately reflects my personal performance of the history, physical exam, medical decision making, and the department course for this patient. I have also personally directed, reviewed, and agree with the discharge instructions and disposition. <Bola Daniels - Last Filed: 11/13/18 07:46> Disposition/Present on Arrival <Bola Daniels - Last Filed: 11/13/18 07:46> - Present on Arrival Any Indicators Present on Arrival: No History of DVT/PE: No History of Uncontrolled Diabetes: No Urinary Catheter: No History of Decub. Ulcer: No History Surgical Site Infection Following: None - Disposition Have Diagnosis and Disposition been Completed?: Yes Disposition Time: 11:49 Patient Plan: Discharge <Christine Ware - Last Filed: 11/13/18 12:58> - Disposition Diagnosis: Puncture wound Disposition: HOME/ ROUTINE Patient Problems: Current Active Problems Problem Status Onset Puncture wound Acute Condition: STABLE Additional Instructions: Please follow up with your primary care physician within 3-5 days of discharge Please follow up in the Podiatry clinic within 3-7 days of discharge If your symptoms worsen or if new concerning symptoms arise please proceed to the nearest ED immediately Referrals: You Castro MD [Primary Care Provider] - Follow up with primary Podiatry Clinic [Outside] - Follow up with primary Forms: [employer] (Surinamese), WORK NOTE
[2018-11-13 10:06] VITALS: RESP 18
--- NOTE | 2018-11-13 10:09 | CP.PCM.CON ---
<Lio San - Last Filed: 11/13/18 21:03> History of Present Illness - History of Present Illness History of Present Illness: Podiatry Consult Note - Dr. Maloney 57F seen and evaluated in ED for left foot pain. present at bedside. Patient believes she stepped on something while walking to the bathroom last night; states she did not see anything sticking out of her foot however continued to have pain the following morning, which prompted ED visit. Patient reports sharp pain localized under the ball of her left foot. Offers no other pedal complaints. Denies n/v/f/d/c/sob/koroma/cp. Review of Systems - Review of Systems All systems: reviewed and no additional remarkable complaints except (as per HPI) Past Patient History - Infectious Disease Hx of Infectious Diseases: None - Tetanus Immunizations Tetanus Immunization: Unknown - Past Social History Smoking Status: Light Smoker < 10 Cigarettes Daily - CARDIAC Hx Cardiac Disorders: No - PULMONARY Hx Respiratory Disorders: No - NEUROLOGICAL Hx Neurological Disorder: No - HEENT Hx HEENT Problems: No - RENAL Hx Chronic Kidney Disease: No - ENDOCRINE/METABOLIC Hx Endocrine Disorders: No - HEMATOLOGICAL/ONCOLOGICAL Hx Blood Disorders: No Hx Blood Transfusions: No Hx Blood Transfusion Reaction: No - INTEGUMENTARY Hx Dermatological Problems: No - MUSCULOSKELETAL/RHEUMATOLOGICAL Hx Musculoskeletal Disorders: Yes Hx Arthritis: Yes Other/Comment: b/l hip replacement - GASTROINTESTINAL Hx Gastrointestinal Disorders: No - GENITOURINARY/GYNECOLOGICAL Hx Genitourinary Disorders: No - PSYCHIATRIC Hx Psychophysiologic Disorder: Yes Hx Depression: Yes Hx Emotional Abuse: No Hx Physical Abuse: No Hx Substance Use: No - SURGICAL HISTORY Hx Joint Replacement: Yes (bilateral hip 2005, 2009) Hx Tubal Ligation: Yes - ANESTHESIA Hx Anesthesia: Yes Hx Anesthesia Reactions: No Hx Malignant Hyperthermia: No Meds Allergies/Adverse Reactions: Allergies Allergy/AdvReac Type Severity Reaction Status Date / Time No Known Allergies Allergy Verified 11/13/18 06:44 Physical Exam - Constitutional Appears: Non-toxic, No Acute Distress - Extremities Exam Additional comments: LLE focused: VASC: DP and PT pulses palpable 2/4. CFT <3 seconds to digits. Temperature gradient WNL. No edema noted. NEURO: Light touch and protective sensation intact. DERM: Linear fissure noted sub 2nd met head with surrounding hyperkeratosis. No erythema, fluctuance present. Skin diffusely dry. ORTHO: Pain on palpation sub 2nd met head hyperkeratosis. - Neurological Exam Neurological exam: Alert, Oriented x3 - Psychiatric Exam Psychiatric exam: Normal Affect, Normal Mood Results - Vital Signs Recent Vital Signs: Last Vital Signs Temp 97.6 F 11/13/18 06:44 Pulse 77 11/13/18 10:06 Resp 18 11/13/18 10:06 BP 117/75 11/13/18 10:06 Pulse Ox 98 11/13/18 10:06 Assessment & Plan - Assessment and Plan (Free Text) Assessment: 57F with foreign body to left foot, likely wooden splinter Plan: Patient seen and evaluated Discussed with attending, Dr. Maloney Left foot XR: no foreign body present, ST edema noted plantar to metatarsal heads LE US: 3 hypoechoic foci in subcutaneous tissue; no foreign body present Hyperkeratosis shaply pared w/o incident Recommend OTC Ibuprofen PRN pain Advised patient to follow up in the wound care center if pain persists Stable for dc per podiatry Thank you for the consult <Navdeep Maloney - Last Filed: 11/15/18 16:29> Results - Vital Signs Recent Vital Signs: Last Vital Signs Temp 97.6 F 11/13/18 06:44 Pulse 78 11/13/18 12:11 Resp 18 11/13/18 12:11 BP 131/85 11/13/18 12:11 Pulse Ox 99 11/13/18 12:11 Attending/Attestation - Attestation I have personally seen and examined this patient.: Yes I have fully participated in the care of the patient.: Yes I have reviewed all pertinent clinical information: Yes
--- NOTE | 2018-11-13 11:17 | US ---
Date of service: 11/13/2018 PROCEDURE: Limited ultrasound examination of left foot HISTORY: left foot, forieng body? COMPARISON: Zayda a is made with previous x-ray of the left foot dated 11/13/2018 TECHNIQUE: Limited ultrasound examination of the anterior aspect of the left foot was performed. FINDINGS: The study demonstrate 3 hypoechoic foci in the subcutaneous region at plantar aspect of the distal left foot adjacent to the level of the metatarsal pharyngeal joint the 1st lesion seen at the level of the 1st metatarsal pharyngeal joint measures 0.49 x 0.25 x 0.43 centimeter. The 2nd lesion noted at the level of the 3rd toe measures 0.59 x 0.27 x 0.31 centimeter. The 3rd hypoechoic structure noted at the level of the 4th metatarsophalangeal joint measures 0.4 x 0.2 x 0.3 centimeter. IMPRESSION: No definite ultrasound evidence of foreign body. Round hypoechoic foci noted at the plantar distal aspect of the left foot at the level of the metatarsophalangeal joints as discussed above. If clinically warranted further assessment by MRI may be obtained.
--- NOTE | 2018-11-13 11:33 | RAD ---
Date of service: 11/13/2018 PROCEDURE: Left Foot Radiographs. HISTORY: r/o foreign body COMPARISON: None. FINDINGS: BONES: No evidence of acute fracture or destructive bony lesion. JOINTS: No evidence of dislocation. Moderate arthritic changes noted more prominent at the 1st metatarsal-phalangeal joint. SOFT TISSUES: Mild soft tissue swelling noted in the distal aspect of the left foot. No evidence of radiopaque foreign body. OTHER FINDINGS: None. IMPRESSION: No evidence of radiopaque foreign body.
[2018-11-13] MEDS ORDERED: TDAP Vaccine 0.5 mL Syr IM ONE (11:50)
[2018-11-13 12:13] VITALS: BP 131/85; PULSE 78; O2SAT 99
== END 2018-11-13 13:02 | disposition home or self-care (01) ==
LOC: ED 06:27
DX: S90.852A Superficial foreign body, left foot, initial encounter (principal); W22.8XXA Striking against or struck by other objects, initial encounter; Y93.01 Activity, walking, marching and hiking; F17.210 Nicotine dependence, cigarettes, uncomplicated; Z23 Encounter for immunization

== ENCOUNTER 2018-12-28 13:10 | Emergency (ER) | payer OTHER ==
[2018-12-28 13:11] VITALS: BMI 25.7
[2018-12-28 13:24] VITALS: TEMP 98.5
--- NOTE | 2018-12-28 15:19 | RAD ---
PROCEDURE: Left Hip X-ray Radiographs. HISTORY: hip pain - h/o replacement 13 yrs. ago COMPARISON: Comparison made with prior study dated 09/29/2016. FINDINGS: BONES: Bilateral total hip replacements. Hardware appears intact and appropriately located. Old healed fracture deformities of the left superior and inferior pubic rami as well as the right inferior pubic ramus. JOINTS: As above SOFT TISSUES: Normal. OTHER FINDINGS: None. IMPRESSION: Bilateral total hip replacements. Hardware appears intact and appropriately located. Old healed fracture deformities the left superior and inferior pubic rami as well as the right inferior pubic ramus.
--- NOTE | 2018-12-28 15:22 | ED PDOC ---
Arrival/HPI - General Chief Complaint: Hip Pain Historian: Patient - History of Present Illness Narrative History of Present Illness (Text): 12/28/18 15:20 Kiley Stafford is a 58 year old female, with a past medical history of degenerative joint diseases and bilateral hip replacements, presents to the emergency department for non traumatic left hip pain since two weeks. Patient informs possibly lifting something heave to aggravate hips. Patient is able to ambulate. Patient denies any falls, fevers, chills, headache, dizziness, chest pain, shortness of breath, dyspnea on exertion, cough, abdominal pain, nausea, vomiting, diarrhea, back pain, neck pain, or any other complaint. Time/Duration: > week (2 weeks) Symptom Onset: Gradual Symptom Course: Unchanged Activities at Onset: Light Context: Home Past Medical History - Provider Review Nursing Documentation Reviewed: Yes - Infectious Disease Hx of Infectious Diseases: None - Tetanus Immunization Tetanus Immunization: Unknown - Reproductive Menopause: Yes - Past Medical History Past Medical History: No Previous - Cardiac Hx Cardiac Disorders: No - Pulmonary Hx Respiratory Disorders: No - Neurological Hx Neurological Disorder: No - HEENT Hx HEENT Disorder: No - Renal Hx Renal Disorder: No - Endocrine/Metabolic Hx Endocrine Disorders: No - Hematological/Oncological Hx Blood Disorders: No - Integumentary Hx Dermatological Disorder: No - Musculoskeletal/Rheumatological Hx Musculoskeletal Disorders: Yes Hx Arthritis: Yes Other/Comment: b/l hip replacement - Gastrointestinal Hx Gastrointestinal Disorders: No - Genitourinary/Gynecological Hx Genitourinary Disorders: No - Psychiatric Hx Psychophysiologic Disorder: Yes Hx Depression: Yes Hx Substance Use: No - Surgical History Hx Joint Replacement: Yes Hx Tubal Ligation: Yes - Anesthesia Hx Anesthesia: Yes Hx Anesthesia Reactions: No Hx Malignant Hyperthermia: No - Suicidal Assessment Feels Threatened In Home Enviroment: No Family/Social History - Physician Review Nursing Documentation Reviewed: Yes Family/Social History: No Known Family HX Smoking Status: Light Smoker < 10 Cigarettes Daily Hx Alcohol Use: Yes Hx Substance Use: No Hx Substance Use Treatment: No Allergies/Home Meds Allergies/Adverse Reactions: Allergies No Known Allergies Allergy (Verified 12/28/18 13:18) Review of Systems - Physician Review All systems were reviewed & negative as marked: Yes - Review of Systems Constitutional: absent: Fevers, Other (chills) Respiratory: absent: SOB, Cough Cardiovascular: absent: Chest Pain, ZAMORA Gastrointestinal: absent: Abdominal Pain, Diarrhea, Nausea, Vomiting Musculoskeletal: Arthralgias (non traumatic left hip pain). absent: Back Pain, Neck Pain Neurological: absent: Headache, Dizziness Physical Exam Vital Signs Reviewed: Yes Vital Signs Temp Pulse Resp BP Pulse Ox 12/28/18 13:19 98.5 F 90 16 125/82 98 Temperature: Afebrile Blood Pressure: Normal Pulse: Regular Respiratory Rate: Normal Appearance: Positive for: Well-Appearing, Non-Toxic, Comfortable Pain Distress: None Mental Status: Positive for: Alert and Oriented X 3 - Systems Exam Head: Present: Atraumatic, Normocephalic Pupils: Present: PERRL Extroacular Muscles: Present: EOMI Conjunctiva: Present: Normal Mouth: Present: Moist Mucous Membranes Neck: Present: Normal Range of Motion Respiratory/Chest: Present: Clear to Auscultation, Good Air Exchange. No: Respiratory Distress, Accessory Muscle Use, Wheezes, Rales, Rhonchi Cardiovascular: Present: Regular Rate and Rhythm, Normal S1, S2. No: Murmurs, Rub, Gallop Abdomen: No: Tenderness, Distention, Peritoneal Signs Back: Present: Normal Inspection Upper Extremity: Present: Normal Inspection. No: Cyanosis, Edema Lower Extremity: Present: Normal Inspection. No: Edema Neurological: Present: GCS=15, CN II-XII Intact, Speech Normal Skin: Present: Warm, Dry, Normal Color. No: Rashes Psychiatric: Present: Alert, Oriented x 3, Normal Insight, Normal Concentration Medical Decision Making ED Course and Treatment: 12/28/18 15:20 Impression: Patient is a 58 year old female who presents to the emergency department complaining of nontraumatic left hip pain since two weeks. Pt informs potentially lifting a heavy object to aggravate hips. Differential Diagnosis included but are not limited to: Plan: -- Left Hip X-Ray -- Reassess and disposition Prior Visits: Notes and results from previous visits were reviewed. Progress Notes: - RAD Interpretation Narrative RAD Interpretations (Text): 12/28/18 15:15 Left Hip/Pelvis X-Ray shows: FINDINGS: BONES: Bilateral total hip replacements. Hardware appears intact and appropriately located. Old healed fracture deformities of the left superior and inferior pubic rami as well as the right inferior pubic ramus. JOINTS: As above SOFT TISSUES: Normal. OTHER FINDINGS: None. IMPRESSION: Bilateral total hip replacements. Hardware appears intact and appropriately located. Old healed fracture deformities the left superior and inferior pubic rami as well as the right inferior pubic ramus. Radiology Orders: 12/28/18 14:04 Hip Left [HIP MIN 2V W/ PELVIS LT] [RAD] Stat Jewel Sawyer: Radiologist - Andrewibe Statement The provider has reviewed the documentation as recorded by the Scribe Ovidio Jain All medical record entries made by the Scribe were at my direction and personally dictated by me. I have reviewed the chart and agree that the record accurately reflects my personal performance of the history, physical exam, medical decision making, and the department course for this patient. I have also personally directed, reviewed, and agree with the discharge instructions and disposition. Disposition/Present on Arrival - Present on Arrival Any Indicators Present on Arrival: No History of DVT/PE: No History of Uncontrolled Diabetes: No Urinary Catheter: No History of Decub. Ulcer: No History Surgical Site Infection Following: None - Disposition Have Diagnosis and Disposition been Completed?: Yes Diagnosis: Hip pain Disposition: HOME/ ROUTINE Disposition Time: 15:50 Patient Problems: Current Active Problems Problem Status Onset Hip pain Acute Condition: GOOD Discharge Instructions (ExitCare): Hip Pain (DC) Additional Instructions: KILEY STAFFORD, thank you for letting us take care of you today. The emergency medical care you received today was directed at your acute symptoms. If you were prescribed any medication, please fill it and take as directed. It may take several days for your symptoms to resolve. Return to the Emergency Department if your symptoms worsen, do not improve, or if you have any other problems. Please contact your doctor or call one of the physicians/clinics you have been referred to that are listed on the Patient Visit Information form that is included in your discharge packet. Bring any paperwork you were given at discharge with you along with any medications you are taking to your follow up visit. Our treatment cannot replace ongoing medical care by a primary care provider outside of the emergency department. Thank you for allowing the [facility] team to be part of your care today. Follow up with your primary care doctor or your orthopedic doctor in 3-5 days for re-evaluation and further management. Prescriptions: Ibuprofen [Motrin] 600 mg PO Q6 PRN #20 tab PRN Reason: Pain, Moderate (4-7) Referrals: You Castro MD [Primary Care Provider] - Follow up with primary Forms: [employer] (Sami), WORK NOTE
[2018-12-28 15:53] VITALS: BP 129/73; PULSE 74; RESP 18
[2018-12-28 15:55] VITALS: O2SAT 98
== END 2018-12-28 15:53 | disposition home or self-care (01) ==
LOC: ED 13:10
DX: M25.552 Pain in left hip (principal)